=== PATIENT | female | born 1950 | race Caucasian/White ===

== ENCOUNTER 2020-04-26 22:56 | Observation (INO) | payer MEDICARE ==
[~2020-04-26] VITALS: Ht 162.6 cm; Wt 68.9 kg
[2020-04-26] MEDS ORDERED: ASPI81CH PO (23:35)
[2020-04-26] MEDS ORDERED: BACL10 PO (23:36)
[2020-04-26] MEDS ORDERED: ATORVASTATIN CA40 MG PO (23:36)
[2020-04-26] MEDS ORDERED: VITAMIN D32000 UNI2 PO (23:37)
[2020-04-26] MEDS ORDERED: FENO145 PO (23:38)
[2020-04-26] MEDS ORDERED: Flovent Disku250 MCG (23:39)
[2020-04-26] MEDS ORDERED: LEVSOD137 PO (23:40)
[2020-04-26] MEDS ORDERED: Prevacid Soluta30 MG (23:40)
[2020-04-26] MEDS ORDERED: GABA300 PO (23:40)
[2020-04-26] MEDS ORDERED: MIRT15ST PO (23:41)
[2020-04-26] MEDS ORDERED: LOSA50 PO (23:41)
[2020-04-26] MEDS ORDERED: Buspirone HCl30 MG PO (23:42)
[2020-04-27 00:46] LABS: Thyroid Stimulating Hormone 4.31 uIU/mL (0.360-4.800)
[2020-04-27 04:58] LABS: Hematocrit 32.9 % (33.0-51.0); Hemoglobin 10.5 g/dL (11.5-16.0); Mean Corpuscular HGB 31.2 pg (26.0-34.0); Mean Corpuscular HGB Conc 31.9 g/dL (31.5-36.5); Mean Corpuscular Volume 98 fL (80-100); Mean Platelet Volume 9.8 fL (9.1-12.4); Platelet Count 306 K/mm3 (150-400); RDW Coefficient Variation 13.5 % (11.7-14.2); RDW Standard Deviation 48.6 fL (35.1-46.3); Red Blood Cell Count 3.37 M/mm3 (3.80-5.20); White Blood Cell Count 5.56 K/mm3 (4.00-11.30)
[2020-04-27 05:17] LABS: Anion Gap 7 mmol/L (6-16); Blood Urea Nitrogen 22 mg/dL (8-24); Bun/Creatinine Ratio 24.1 (12.0-20.0); CO2, Blood 19 mmol/L (21-32); Calcium, Blood 9.7 mg/dL (8.5-10.1); Chloride, Blood 116 mmol/L (98-108); Creatinine, Blood 0.91 mg/dL (0.40-1.00); Glomerular Filtration Rate >60 (60-); Glucose, Blood 85 mg/dL (70-99); Potassium, Blood 4.2 mmol/L (3.5-5.5); Sodium, Blood 142 mmol/L (136-145)
--- NOTE | 2020-04-27 06:04 | NUR ---
BOTTLE SELECTOR SUMMARY PT NEW ADMIT. ARRIVED TO UNIT VIA STRETCHER AT 0250. A/O X1 TO SELF. MOST TIME DOESN'T REPLY AT ALL OR VERY DELAYED RESPONSE. PT CANNOT RECALL MEDICAL HX. I OBTAINED MOST OF IT FROM MEDICAL RECORD. SLEPT WELL SINCE ADIMISSION. DENIES PAIN, NAUSEA. CARDONA CURRENTLY DRAINING CLEAR YELLOW URINE. ABD SCAR FROM PREVIOUS SURGERY NOTED. SOME HEALED SCABS ON BILATERAL FOREARMS. OTHERWISE SKIN C.D.I. BED ALARM ON, BED IN LOWEST POSITION, CALL LIGHT WITHIN REACH.
[2020-04-27 11:07] LABS: Percent Saturation 11.1 % (15.0-50.0)
--- NOTE | 2020-04-27 18:33 | NUR ---
SHIFT SUMMARY: NO ACUTE CHANGES TO REPORT THIS SHIFT. PT A&O; CALM AND COOPERATIVE WITH CARE; AFFECT CLEARING WITH TIME. NO C/O PAIN THIS SHIFT. CARDONA D/C'd THIS SHIFT; PT VOIDING SPONTANEOUSLY. LABS CONTINUING. WCTM.
--- NOTE | 2020-04-27 20:46 | NUR ---
pt a/o x4, independent in room. mentation appears to have improved to baseline. when i gave pt her scheduled medications, pt said "yes" to each of the meds listed. however, after pt swallowed medications, she said she doesn't take mirtazapine/remeron. remeron is listed as one of her home meds. i explained to pt this is for depression or restless leg syndrome. she states she has neither. she however did say she takes myrbetric for her bladder control. will notifiy doctor of this. per day shift report, pt's brought in pt's home medications and were gone over with.
--- NOTE | 2020-04-28 04:29 | NUR ---
AGRICULTURAL EXTENSION EDUCATOR SUMMARY PT A/O X4. ABLE TO EXPRESS NEEDS APPROPRIATELY. PT WAS ABLE TO FALL ASLEEP AFTER WHITE NOISE MACHINE PROVIDED IN ROOM. PT STATES SHE IS READY TO GO HOME TODAY. DENIES PAIN, NAUSEA. INDEPENDENT IN ROOM. VSS.
[2020-04-28 04:52] LABS: BASOPHILS ABSOLUTE AUTO 0.03 K/mm3 (0.00-0.23); BASOPHILS PERCENT AUTO 1 % (0-2); EOSINOPHILS ABSOLUTE AUTO 0.22 K/mm3 (0.00-0.68); EOSINOPHILS PERCENT AUTO 6 % (0-6); Hematocrit 30.6 % (33.0-51.0); IMMATURE GRAN ABSOLUTE AUTO 0.01 K/mm3 (0.00-0.10); IMMATURE GRAN PERCENT AUTO 0 % (0-1); LYMPHOCYTES ABSOLUTE AUTO 1.39 K/mm3 (0.84-5.20); LYMPHOCYTES PERCENT AUTO 36 % (21-46); MONOCYTES ABSOLUTE AUTO 0.41 K/mm3 (0.16-1.47); MONOCYTES PERCENT AUTO 11 % (4-13); Mean Corpuscular HGB 31.2 pg (26.0-34.0); Mean Corpuscular HGB Conc 32.7 g/dL (31.5-36.5); Mean Corpuscular Volume 95 fL (80-100); Mean Platelet Volume 9.7 fL (9.1-12.4); NEUTROPHILS PERCENT AUTO 47 % (41-73); Platelet Count 317 K/mm3 (150-400); RDW Coefficient Variation 13.5 % (11.7-14.2); RDW Standard Deviation 47.7 fL (35.1-46.3); Red Blood Cell Count 3.21 M/mm3 (3.80-5.20); White Blood Cell Count 3.86 K/mm3 (4.00-11.30)
[2020-04-28 05:17] LABS: Alanine Aminotransfer (ALT/SGP 14 U/L (12-78); Albumin, Blood 2.8 g/dL (3.4-5.0); Albumin/Globulin Ratio 0.9 (0.8-1.8); Alk Phos 55 U/L (50-136); Anion Gap 4 mmol/L (6-16); Aspartate Aminotrans (AST/SGOT 18 U/L (12-37); Bilirubin, Total 0.6 mg/dL (0.1-1.0); Blood Urea Nitrogen 13 mg/dL (8-24); Bun/Creatinine Ratio 15.7 (12.0-20.0); CO2, Blood 23 mmol/L (21-32); Chloride, Blood 114 mmol/L (98-108); Creatinine, Blood 0.83 mg/dL (0.40-1.00); Glomerular Filtration Rate >60 (60-); Glucose, Blood 87 mg/dL (70-99); Potassium, Blood 4.2 mmol/L (3.5-5.5); Sodium, Blood 141 mmol/L (136-145); Total Protein, Blood 5.8 g/dL (6.4-8.2)
--- NOTE | 2020-04-28 14:58 | NUR ---
PT DISCHARGED FROM THE UNIT. IV REMOVED. DISCHARGE INSTRUCTIONS REVIEWED. CALLED PRIMARY CARE OFFICE THEY WILL CALL PT TO SCHEDULE FOLLOW UP APT. PT LEFT UNIT VIA WHEEL CHAIR. TO DRIVE HOME.
== END 2020-04-28 14:00 | disposition home or self-care (01) ==
LOC: ER 22:56 → MEDS 22:57 → ENPENDDIS 04-28 12:29 → MEDS 04-28 14:00
PROVIDERS: Emergency Medicine; Internal Medicine; ADMIT Internal Medicine
DX: G92 Toxic encephalopathy (principal); D64.9 Anemia, unspecified; E03.9 Hypothyroidism, unspecified; Z88.5 Allergy status to narcotic agent; Z88.8 Allergy status to other drugs, medicaments and biological substances
CPT/HCPCS: 36415; 80048; 80053; 82140; 82607; 82728; 82746; 82947; 83540; 83550; 83605; 83690; 84443; 85025; 85027; 85651; 96372; 99285; A9270-GY; G0378; J1650